=== PATIENT | male | born 1975 | race Caucasian/White ===

== ENCOUNTER 2017-05-14 13:08 | Emergency (ER) | payer MEDICAID ==
--- NOTE | 2017-05-14 13:25 | UC ---
Skin Complaint HPI - HPI Summary HPI Summary: 41 YEAR OLD GENTLEMAN PRESENTS WITH COMPLAINS OF RIGHT KNEE RASH. - History of Current Complaint Time Seen by Provider: 05/14/17 13:24 Stated Complaint: RASH - Allergy/Home Medications Allergies/Adverse Reactions: Allergies Allergy/AdvReac Type Severity Reaction Status Date / Time seasonal Allergy Eyes Uncoded 05/14/17 13:34 Itchy/Swollen/Red/Watery Review of Systems Constitutional: Negative Skin: Rash Eyes: Negative ENT: Negative Respiratory: Negative Cardiovascular: Negative Gastrointestinal: Negative Genitourinary: Negative Motor: Negative Neurovascular: Negative Musculoskeletal: Negative Neurological: Negative Psychological: Negative All Other Systems Reviewed And Are Negative: Yes PMH/Surg Hx/FS Hx/Imm Hx Previously Healthy: Yes - Surgical History Surgical History: Yes Surgery Procedure, Year, and Place: RIGHT LEG INFECTION/SX - Family History Known Family History: Positive: Cardiac Disease - Social History Alcohol Use: Occasionally Substance Use Type: None Smoking Status (MU): Never Smoked Tobacco - Immunization History Most Recent Influenza Vaccination: has not had Most Recent Tetanus Shot: UNSURE Physical Exam Triage Information Reviewed: Yes Vital Signs Reviewed: Yes Eye Exam: Normal ENT Exam: Normal Dental Exam: Normal Neck exam: Normal Neck: Positive: 1 Respiratory Exam: Normal Cardiovascular Exam: Normal Abdominal Exam: Normal Musculoskeletal Exam: Normal Neurological Exam: Normal Psychological Exam: Normal Skin: Positive: rashes Course/Dx - Diagnoses Provider Diagnoses: RASH Discharge - Discharge Plan Condition: Stable Disposition: HOME Prescriptions: LoraTADine TAB(NF) [Claritin 10 MG TAB(NF)] 10 mg PO DAILY #30 tab Triamcinolone 0.1% CREAM(NF) [Kenalog 0.1% Cream (NF)] 1 applic TOPICAL TID PRN #90 applic PRN Reason: Itching predniSONE TAB* [Deltasone TAB*] 40 mg PO DAILY #10 tab Patient Education Materials: Acute Rash (ED) Referrals: PATRICIA Tripathi [Primary Care Provider] -
[2017-05-14] MEDS ORDERED: methylPREDNISolone 125 MG* 2 ML VIAL IV ONE (13:33)
[2017-05-14 13:34] VITALS: BP 128/84
[2017-05-14] MEDS ORDERED: methylPREDNISolone 125 MG* 2 ML VIAL IM ONE (13:58)
== END 2017-05-14 14:24 | disposition home or self-care (01) ==
LOC: UCCORT 13:08
DX: R21 Rash and other nonspecific skin eruption (principal)
CPT/HCPCS: 96372; 99212; G0463; J2930